=== PATIENT | female | born 1985 | race Caucasian/White ===

== ENCOUNTER 2022-02-04 14:43 | Emergency (ER) | payer BC, SELFPAY ==
[2022-02-04 14:51] VITALS: BP 134/84; PULSE 93; RESP 12; TEMP 36.3; O2SAT 100
--- NOTE | 2022-02-04 14:56 | ED.SKABFB ---
HPI - Skin/Abscess/Foreign Bdy General Chief complaint: Skin/Abscess/Foreign Body Stated complaint: eye swelling Time Seen by Provider: 02/04/22 15:00 Source: patient and RN notes reviewed Mode of arrival: ambulatory Limitations: no limitations History of Present Illness HPI narrative: 36-year-old female presents concern for bilateral inner canthus swelling. Reports she noticed the area started swelling yesterday after she was stung by a bee on the second digit of her right hand. Reports she thinks the stinger is still in her finger. Reports she took 1 Benadryl 1 hour ago. She denies any dyspnea, swollen lips, swollen tongue, nausea, vomiting, diarrhea, fever. MD complaint: rash Related Data Allergies Allergy/AdvReac Type Severity Reaction Status Date / Time amoxicillin Allergy Unknown Unverified 12/11/15 19:28 Penicillins Allergy Unknown Verified 04/23/15 13:52 Review of Systems Review of Systems: CONSTITUTIONAL: Denies malaise, chills, sweats, or fever. EYES: Denies redness, irritation. Reports bilateral inner canthus swelling and watery discharge. ENT: Denies rhinorrhea, congestion, swollen lips, swollen tongue CARDIOVASCULAR: Denies chest pain, palpitations, or edema. RESPIRATORY: Denies cough or dyspnea. GASTROINTESTINAL: Denies abdominal pain, nausea, vomiting SKIN: Reports bee sting site with stinger still in her finger of the second digit of the right hand MUSCULOSKELETAL: Denies joint pain or myalgia. NEUROLOGIC: Denies headache. All systems reviewed & are unremarkable except as noted in HPI and below PMFSH Family History Family History (Updated 11/01/14 @ 09:31 by DOCTOR UNKNOWN) Grandparent Hypertension Cerebrovascular accident Family history of congestive heart failure Mother Hypertension Other Family history of atrial fibrillation Social History Social History Smoking status: Former smoker Alcohol intake: current Comments At time of signature, agree with nursing past medical, surgical, social and family history. There is no relevant family history pertinent to the presenting complaint Exam Narrative: GENERAL: Well-appearing, well-nourished, and in no acute distress. HEAD: Normocephalic, atraumatic. EYES: PERRLA, conjunctivae clear, sclera clear and EOMI bilaterally. Mild inner canthus swelling noted bilaterally ENT: Mucous membranes moist. Oropharynx without edema, erythema or lesions. NECK: Supple. No lymphadenopathy CHEST: Clear to auscultation. No respiratory distress. HEART: Regular rate and rhythm. SKIN: Warm, dry. Small black foreign body noted in the distal tip of the second digit of the right hand NEURO: Alert and oriented x3. PSYCH: Normal mood and affect Course Course Emergency Course: Patient is aware of diagnosis, understands and agrees to treatment plan. Anticipatory guidance given. Patient agrees to follow-up as directed and is aware of reasons to seek care at the emergency department. Portions of this record may have been created with voice recognition software Level of Care: Express Care Visit Vital Signs Vital signs: Reviewed. Procedures Foreign Body Removal Foreign Body #1: Foreign Body Removal Date: 02/04/22 Foreign Body Removal Time: 15:10 Time Out Performed: yes Site: right and hand Description of foreign body: insect (Stinger) Sedation/Analgesia: none Technique: removal with forceps Confirmed by:: direct visualization Complications: none Post-procedure exam: awake, alert Neurovascular: normal distal pulse, normal capillary fill, distal light touch sensation intact and no change from pre-procedure Foreign Body Removal Narrative: Skin callus above the foreign body opened very superficially in the epidermis using a 27-gauge needle to open the skin, no bleeding noted. Insect stinger successfully removed, no other foreign bodies visible. Skin irrigated thoroughly. Neosporin and Ba
== END 2022-02-04 15:31 | disposition home or self-care (01) ==
PROVIDERS: Emergency Provider Nurse Practitioner
DX: T63.481A Toxic effect of venom of other arthropod, accidental (unintentional), initial encounter (principal); S61.240A Puncture wound with foreign body of right index finger without damage to nail, initial encounter; Z87.891 Personal history of nicotine dependence
CPT/HCPCS: 99202; G0463